=== PATIENT | female | born 1995 | race Caucasian/White ===

== ENCOUNTER 2020-03-23 12:26 | Emergency (ER) | payer OTHER ==
[~2020-03-23] VITALS: Ht 170.2 cm; Wt 89.8 kg
[2020-03-23 12:33] VITALS: BP 131/45
--- NOTE | 2020-03-23 12:42 | NUR ---
PT AMBULATED TO [facility]
--- NOTE | 2020-03-23 12:45 | NUR ---
24/F BIB SELF C/O RIGHT FLANK PAIN X 3 DAYS. DENIES DYSURIA. DENIES N/V/D; SKIN IS PINK/WARM/DRY; AAOX4 WITH EVEN AND STEADY GAIT; LUNGS CLEAR BL; HR EVEN AND REGULAR; PT DENIES ANY FEVER, CP, SOB, OR COUGH AT THIS TIME; PATIENT STATES PAIN OF 7/10 AT THIS TIME.
--- NOTE | 2020-03-23 13:08 | NUR ---
PT TAKEN TO US VIA W/C.
[2020-03-23 13:16] LABS: BASOPHILS % (AUTO) 0.2 % (0.0-2.0); EOSINOPHILS % (AUTO) 0.2 % (0.0-4.0); HEMATOCRIT 33.5 % (36-48); HEMOGLOBIN 10.5 g/dL (12.0-16.0); LYMPHOCYTES # (AUTO) 1.2 K/uL (2.5-16.5); LYMPHOCYTES % (AUTO) 13.7 % (20.5-51.1); MEAN CORPUSCULAR HEMOGLOBIN 25 pg (27-31); MEAN CORPUSCULAR HGB CONC 31 g/dL (33-37); MEAN CORPUSCULAR VOLUME 79.4 fL (80-94); MONOCYTES # (AUTO) 0.6 K/uL (0.8-1.0); MONOCYTES % (AUTO) 7.7 % (1.7-9.3); NEUTROPHILS # (AUTO) 6.6 K/uL (1.8-7.7); NEUTROPHILS % (AUTO) 78.2 % (42.2-75.2); PLATELET COUNT (AUTO) 217 K/uL (140-450); RED BLOOD CELL COUNT(AUTO) 4.22 MIL/uL (4.20-5.40); WHITE BLOOD COUNT (AUTO) 8.4 K/uL (4.8-10.8)
[2020-03-23 13:22] LABS: APPEARANCE,URINE CLEAR (CLEAR); BILIRUBIN,URINE 1+ (NEGATIVE); BLOOD, URINE 1+ (NEGATIVE); COLOR,URINE YELLOW (YELLOW); LEUKOCYTE ESTERASE ,URINE NEGATIVE (NEGATIVE); NITRITE, URINE NEGATIVE (NEGATIVE); UGLUCOSE NEGATIVE (NEGATIVE)
[2020-03-23 13:30] LABS: RBC,URINE 0-5 /HPF (0-5); WBC,URINE 0-5 /HPF (0-5)
[2020-03-23 13:35] LABS: ALBUMIN 4.4 g/dL (3.4-5.0); ANION GAP 17.6 (8-16); CREATININE 0.9 mg/dL (0.6-1.3); POTASSIUM 3.6 mmol/L (3.5-5.1); TOTAL BILIRUBIN 1.7 mg/dL (0.0-1.0)
--- NOTE | 2020-03-23 15:02 | NUR ---
DISCHARGE INSTRUCTIONS GIVEN; EMPHASIZED THE NEED TO DECREASE SOLID FOOD INTAKE BUT KEEP ORAL HYDRATION. INTRODUCE SOLID FOODS SLOWLY WHEN STARTING TO FEEL BETTER. VERBALIZATION OF UNDERSTANDING. LEFT ED AMBULATORY IN NO ACUTE DISTRESS.
[2020-03-23 15:05] VITALS: BP 105/66
== END 2020-03-23 15:02 | disposition home or self-care (01) ==
LOC: MED 12:26
DX: K85.10 Biliary acute pancreatitis without necrosis or infection (principal)
CPT/HCPCS: 36415; 76705; 80053; 81001; 81025; 83690; 85025; 99285

== ENCOUNTER 2020-05-01 09:08 | Emergency (ER) | payer OTHER ==
[~2020-05-01] VITALS: Ht 167.6 cm; Wt 88.9 kg
[2020-05-01 09:12] VITALS: BP 137/87
--- NOTE | 2020-05-01 09:20 | NUR ---
24 YEAR OLD FEMALE CPMPLAINS OF UPPER ABDOMINAL PAIN X Friday04/29/2020. PAIN 10/10, DULL, CONTINUOUS, RADIATES TO BACK. PAIN ADDRESSED WITH 2 DOSES NORCO THIS MORNING PER PATIENT. PATIENT STATES PRESENCE OF NAUSEA AND VOMITING X TODAY. DENIES DIARRHEA, STATES SLIGHT CONSTIPATION. DECREASED APPETITE STATED. DENIES FLANK PAIN, DISCOMFORT WHEN URINATING. AO4, BREATHING EVEN AND UNLABORED, SKIN WARM AND DRY. BED IN LOWEST POSITION, LOCKED, X1 SIDERAIL UP. PMH - GALLSTONES, PANCEATITIS NKA
[2020-05-01] MEDS ORDERED: NACL 0.9% 1,000 ML IV ONE (09:30)
[2020-05-01] MEDS ORDERED: KETOROLAC 30 MG/ML VIAL IVP ONE (09:30)
[2020-05-01] MEDS ORDERED: ONDANSETRON 4 MG/2 ML VIAL IVP ONE ×2 (09:30→11:10)
[2020-05-01 09:45] LABS: BASOPHILS % (AUTO) 0.1 % (0.0-2.0); EOSINOPHILS % (AUTO) 0.2 % (0.0-4.0); HEMATOCRIT 32.9 % (36-48); HEMOGLOBIN 10.7 g/dL (12.0-16.0); LYMPHOCYTES # (AUTO) 0.8 K/uL (2.5-16.5); MEAN CORPUSCULAR HEMOGLOBIN 26 pg (27-31); MEAN CORPUSCULAR HGB CONC 33 g/dL (33-37); MEAN CORPUSCULAR VOLUME 78.4 fL (80-94); MONOCYTES # (AUTO) 0.5 K/uL (0.8-1.0); NEUTROPHILS # (AUTO) 7.6 K/uL (1.8-7.7); NEUTROPHILS % (AUTO) 84.7 % (42.2-75.2); PLATELET COUNT (AUTO) 265 K/uL (140-450); RED BLOOD CELL COUNT(AUTO) 4.19 MIL/uL (4.20-5.40); RED CELL DISTRIBUTION WIDTH 15.9 % (11.6-13.7)
[2020-05-01 09:50] LABS: APPEARANCE,URINE HAZY (CLEAR); BILIRUBIN,URINE 2+ (NEGATIVE); BLOOD, URINE 1+ (NEGATIVE); COLOR,URINE AMBER (YELLOW); LEUKOCYTE ESTERASE ,URINE TRACE (NEGATIVE); NITRITE, URINE NEGATIVE (NEGATIVE); PH,URINE 8.5 (5.0-9.0); UGLUCOSE NEGATIVE (NEGATIVE)
[2020-05-01 10:01] LABS: ALBUMIN 4.8 g/dL (3.4-5.0); ANION GAP 15.6 (8-16); CARBON DIOXIDE 26.4 mmol/L (21-32); RBC,URINE 0-5 /HPF (0-5); TOTAL BILIRUBIN 1.5 mg/dL (0.0-1.0); WBC,URINE 0-5 /HPF (0-5)
[2020-05-01 10:02] LABS: CALCIUM OXALATE CRYSTALS,UR 0-10 /HPF (None Seen)
--- NOTE | 2020-05-01 10:24 | NUR ---
PATIENT STATES FEELING INCREASED PAIN AND HALF OF BODY IS "BUMB AND TINGLING". ERMD AWARE
[2020-05-01 10:38] LABS: PROTHROMBIN TIME 10.4 secs (10.8-13.4)
--- NOTE | 2020-05-01 11:05 | NUR ---
PATIENT STATES NAIL BED ARE TURNING SLIGHT BLUE IN COLOR. SKIN FEELS COLD TO TOUCH. PATIENT STATES LACK OF SENSATION IN ARMS AND OTHER PARTS OF BODY. ERMD AWARE AND AT BEDSIDE.
[2020-05-01] MEDS ORDERED: MORPHINE SULFATE 4 MG/ML SYR IVP ONE (11:10)
[2020-05-01] MEDS ORDERED: MAG SULF 2000 MG/WATER PREMIX 50 ML IV ONE (11:50)
[2020-05-01] MEDS ORDERED: KCL 20 MEQ/WATER INJ PREMIX 100 ML IV ONE (11:50)
--- NOTE | 2020-05-01 12:19 | NUR ---
PT IN BED CALM, EYES OPEN, BREATHING EVEN AND UNLABORED. NO APPARENT DISTRES AT THIS TIME. WILL CONTINUE TO MONITOR.
--- NOTE | 2020-05-01 12:20 | NUR ---
JODIE SWAB OBTAINED AND TAKEN TO LAB
--- NOTE | 2020-05-01 14:36 | NUR ---
PATIENT SIGNED REQUEST FOR TRANSFER
--- NOTE | 2020-05-01 15:27 | NUR ---
Patient to be transferred to [facility]. Is being transferred due to HIGHER LEVEL OF CARE. Receiving facility has accepting physician and available space. ER physician has signed transfer form. Patient or responsible democrat has agreed to transfer and signed form. Patient belongings inventoried and will be sent with patient. Copy of nursing notes, lab reports, EKG, Physicians Orders and X-rays to be sent with patient. Report called to OLAF SAENZ at receiving facility. PENDING ambulance service has been called for transfer. ETA is PENDING.
[2020-05-01 17:28] VITALS: BP 113/65
== END 2020-05-01 15:27 | disposition short-term general hospital (02) ==
LOC: MED 09:08
DX: K85.10 Biliary acute pancreatitis without necrosis or infection (principal); K80.50 Calculus of bile duct without cholangitis or cholecystitis without obstruction; E87.6 Hypokalemia; D64.9 Anemia, unspecified; Z20.822 Contact with and (suspected) exposure to COVID-19; F12.10 Cannabis abuse, uncomplicated
CPT/HCPCS: 36415; 76705; 80053; 81001; 81025; 83605; 83690; 85025; 85610; 85730; 87040; 87426; 96361; 96365; 96366; 96367; 96375; 96376; 99291; J1885; J2270; J2405; J3475; J3480